=== PATIENT | female | born 1990 | race African-American/Black ===

== ENCOUNTER 2017-03-15 08:13 | Day surgery (SDC) | payer BC, OTHER ==
--- NOTE | 2017-03-14 12:29 | Pre-Procedure Note/Attestation ---
Pre-Procedure Note/Attestation Complete Prior to Procedure Planned Procedure: right Procedure Narrative: rt knee GLORIA with scope and resection of loose fragments Indications for Procedure Pre-Operative Diagnosis: rt knee stiffness with loose fragments Attestation I attest that I discussed the nature of the procedure; its benefits; risks and complications; and alternatives (and the risks and benefits of such alternatives ), prior to the procedure, with the patient (or the patient's legal underwriting service representative). I attest that, if there was a reasonable possibility of needing a blood transfusion, the patient (or the patient's legal underwriting service representative) was given the [facility] standardized written summary, pursuant to the [place] Blood Safety Act ([place] Health and Safety Code # 1645, as amended). I attest that I re-evaluated the patient just prior to the surgery and that there has been no change in the patient's H&P, except as documented below:NONE VADIM BUENO Mar 14, 2017 12:29
[2017-03-15] VITALS (12 sets, daily range): BP systolic 107–124; BP diastolic 48–80
[~2017-03-15] VITALS: Ht 175.3 cm; Wt 82.6 kg
[~2017-03-15 08:13] MED LIST: NKM; ceFAZolin 1gm in D5W 55ml IVP ONE; celeBREX 200mg Cap **SURGERY PATIENTS ONLY ORAL ONE
[2017-03-15] MEDS ORDERED: Norco 5mg/325mg tab ORAL PRN (08:45)
[2017-03-15] MEDS ORDERED: LR 1000ml 1,000 ML IVLG SCH (08:56)
--- NOTE | 2017-03-15 08:56 | Anethesia Preoperative Eval ---
Anesthesia Pre-op PMH/ROS General Date of Evaluation: Mar 15, 2017 Mallampati Score Class I : Soft palate, uvula, fauces, pillars visible Class II: Soft palate, uvula, fauces visible Class III: Soft palate, base of uvula visible Class IV: Only hard plate visible Allergies: Coded Allergies: OXYCODONE (Verified Allergy, Unknown, 03/14/17) Anesthesia Pre-op Phys. Exam Physician Exam Last Vital Signs Date Time Temp Pulse Resp B/P (MAP) Pulse Ox O2 Delivery O2 Flow Rate FiO2 03/15/17 08:53 98.4 64 18 112/69 97 Room Air Anesthesia Pre-op A/P Labs Urine Test Test 03/15/17 08:25 Urine HCG, Qualitative Negative DAYNA WYNN M.D. Mar 15, 2017 08:56
[2017-03-15] MEDS ORDERED: Ropivacaine 5mg/ml Vial 20ml INJ ONE (08:59)
[2017-03-15] MEDS ORDERED: Lidocaine 1% 10mg/ml/Epi 0.005mg/ml 10ml vial ONE (08:59)
[2017-03-15] MEDS ORDERED: Kenalog-40 1ml Vial ONE (08:59)
[2017-03-15] MEDS ORDERED: Isovue-M 300 15ml INJ ONE (08:59)
[2017-03-15] MEDS ORDERED: LR 1000ml ONE (09:00)
[2017-03-15] MEDS ORDERED: Midazolam 2mg/2ml Inj ONE (09:00)
[2017-03-15] MEDS ORDERED: Midazolam 2mg/2ml Inj IVP PRN (09:00)
[2017-03-15] MEDS ORDERED: Sodium Chloride 10ml vial INJ ONE (09:00)
[2017-03-15] MEDS ORDERED: Lidocaine 1% MPF 10mg/ml 5ml ONE (09:00)
[2017-03-15] MEDS ORDERED: Atropine Inj 1mg/10ml Syr IV PRN (09:00)
[2017-03-15] MEDS ORDERED: fentaNYL 250mcg/5ml ONE (09:00)
[2017-03-15] MEDS ORDERED: Propofol 200mg/20ml IV ONE (09:00)
[2017-03-15] MEDS ORDERED: DiphenhydrAMINE 50mg/ml Inj IVP PRN (09:00)
[2017-03-15] MEDS ORDERED: LORazepam Inj 2mg/ml 1ml IV PRN (09:00)
[2017-03-15] MEDS ORDERED: Alfentanil 2ml Inj ONE (09:00)
[2017-03-15] MEDS ORDERED: fentaNYL 100 mcg/2 mL IV PRN (09:00)
[2017-03-15] MEDS ORDERED: Ketorolac 30mg Inj IV PRN (09:00)
[2017-03-15] MEDS ORDERED: NS Irrig 4000ml IRRIG ONE ×2 (09:00→10:51)
[2017-03-15] MEDS ORDERED: Metoclopramide 10mg/2ml Inj IVP PRN (09:00)
[2017-03-15] MEDS ORDERED: Ketorolac 60mg Inj IV PRN (09:00)
[2017-03-15] MEDS ORDERED: Dexamethasone 4mg/ml vial ONE (09:00)
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
--- NOTE | 2017-03-15 09:45 | Immediate Post-Op Evaluation ---
Immediate Post-Op Evalulation Immediate Post-Op Evalulation Procedure: R Knee Arthroscopy Date of Evaluation: Mar 15, 2017 Time of Evaluation: 11:23 IV Fluids: 900 LR Blood Products: 0 Estimated Blood Loss: 25 Urinary Output: 0 Blood Pressure Systolic: 113 Blood Pressure Diastolic: 68 Pulse Rate: 76 Respiratory Rate: 16 O2 Sat by Pulse Oximetry: 98 Temperature (Fahrenheit): 97.7 Pain Score (1-10): 2 Nausea: No Vomiting: No Complications 0 Patient Status: awake, reacts, patent, extubated, none Hydration Status: adequate Dru Grams Ancef IV Given Within 1 Hr of Incision: Yes Time Given: 07:21 Alexis Gongora MD Mar 15, 2017 09:45
--- NOTE | 2017-03-15 09:46 | 48 Hour Post Anesthesia Eval ---
Post Anesthesia Evaluation Procedure: R Knee Arthroscopy Date of Evaluation: Mar 15, 2017 Time of Evaluation: 13:41 Blood Pressure Systolic: 112 0: 72 Pulse Rate: 63 Respiratory Rate: 19 Temperature (Fahrenheit): 98.3 O2 Sat by Pulse Oximetry: 99 Airway: patent Nausea: No Vomiting: No Pain Intensity: 2 Hydration Status: adequate Cardiopulmonary Status: Stable Mental Status/LOC: patient returned to baseline Follow-up Care/Observations: 0 Post-Anesthesia Complications: 0 Follow-up care needed: ready to discharge Alexis Gongora MD Mar 15, 2017 09:46
[2017-03-15] MEDS ORDERED: Acetaminophen (Non formulary) 100 ML IV ONE (11:00)
--- NOTE | 2017-03-15 11:04 | Brief Operative Note ---
Immediate Post Operative Note Operative Note Chief Complaint: rt knee stiffness Pre-op Diagnosis: rt knee ankylosis Procedure: rt knee scope, chondroplasty, resection of scar tissue, GLORIA, removal of 2 screws and 1 washer Post-op Diagnosis: same as pre-op Findings: consistent w/pre-op dx studies Surgeon: md roberto Non Destructive Evaluation Technician: perri badillo Anesthesiologist: md yuniel Anesthesia: general Specimen: yes Complications: none Condition: stable Fluids: NS Estimated Blood Loss: minimal Drains: none Implant(s) used?: No SEVEN BADILLO Mar 15, 2017 11:04
[2017-03-15] MEDS: Meperidine 25mg/0.5ml Inj (FOR RIGORS ONLY) IV PRN ×2 (11:27→12:21)
[2017-03-15] MEDS ORDERED: D5 1/2NS 1,000 ML IV SCH (18:01)
[2017-03-15] MEDS ORDERED: HYDROmorphone 1mg/ml Carpuject SUBQ PRN (18:01)
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
== END 2017-03-15 13:10 | disposition home or self-care (01) ==
LOC: SUR 08:13
DX: M24.661 Ankylosis, right knee (principal); M23.41 Loose body in knee, right knee; M13.861 Other specified arthritis, right knee; T84.84XA Pain due to internal orthopedic prosthetic devices, implants and grafts, initial encounter
CPT/HCPCS: 20680; 29876; 29879; 81025; 97161; J0690; J1100; J2250; J2405; J2704; J2795; J3010; J3301; J3490; J7120; 94003; 94150; J2180